=== PATIENT | female | born 1990 | race Two or more races ===

== ENCOUNTER 2016-10-26 16:05 | Outpatient (CLI) | payer OTHER ==
[~2016-10-26] VITALS: Ht 162.6 cm; Wt 68.0 kg
[~2016-10-26 16:05] MED LIST: ACETAMINOPHEN500 MG PO; AUGMENTIN875 MG PO; BACTRIM,SEPT1 TABLET PO; CIPROFLOXACIN500 M1 PO; Cipro PO; Depo-Provera; FIORICET 50-301 EACH PO; IRON325 MG PO; KEFLEX500 MG PO; MACROBID100 MG PO; Motrin PO; NOHOMEMEDS; PREDNISONE20 MG PO; PRENATAL VITAM1 EAC1 PO; PYRIDIUM100 MG PO; TRAMADOL HCL50 MG PO; TYLENOL WITH C1 EACH PO; ULTRAM50 MG PO; UNISOM SLEEP AI25 MG PO; VALIUM5 MG PO
[2016-10-26] MEDS ORDERED: ZOLOFT100 MG PO (17:02)
[2016-10-26 17:03] VITALS: BP 118/70
== END 2016-10-26 17:45 | disposition home or self-care (01) ==
LOC: EME 16:05 → EDSTATUS 16:25 → LDRP-OP 16:28 → 2WEST 16:29
DX: O26.899 Other specified pregnancy related conditions, unspecified trimester (principal); G43.901 Migraine, unspecified, not intractable, with status migrainosus; Z3A.00 Weeks of gestation of pregnancy not specified
CPT/HCPCS: 59025; G0378

== ENCOUNTER 2016-11-09 22:22 | Outpatient (CLI) | payer OTHER ==
[~2016-11-09 22:22] MED LIST changes: +ZOLOFT100 MG PO
[2016-11-09] MEDS ORDERED: IRON325 MG PO (23:03)
[2016-11-09] MEDS ORDERED: FIORICET,ESG1 TABLET PO (23:04)
[2016-11-09 23:07] VITALS: BP 122/72
[2016-11-09 23:42] LABS: EOSINOPHIL COUNT 0.1 K/uL (0-0.3); HEMATOCRIT 29.3 % (36.0-46.0); IMMATURE GRANULOCYTE (%) 1.4 % (0.0-0.7); IMMATURE GRANULOCYTE COUNT 0.2 K/uL; INSTRUMENT ABS NEUTROPHIL CT 10.6 K/uL; LYMPHOCYTE COUNT 0.8 K/uL (1.0-2.8); MCH 28.9 PG (29.0-34.0); MCHC 33.1 G/DL (30.0-36.0); MCV 87.2 FL (83-99); MEAN PLAT.VOLUME 12.5 uM^3 (9.5-12.4); MONOCYTE (%) 2.4 % (3-12); MONOCYTE COUNT 0.3 K/uL (0-0.8); NEUTROPHIL (%) 88.3 % (45-76); NEUTROPHIL COUNT 10.6 K/uL (1.8-6.4); PLATELET COUNT 101 K/uL (156-360); RBC DIS.WIDTH-CV 13.9 % (11.8-14.6); RBC DIS.WIDTH-SD 43.7 % (39-53); RED BLOOD COUNT 3.36 M/uL (3.80-5.20)
[2016-11-10 00:02] LABS: CHLORIDE 108 mEq/L (99-109); POTASSIUM 3.6 mEq/L (3.7-5.4); SODIUM 135 mEq/L (136-147)
[2016-11-10 00:04] LABS: GLUCOSE 95 mg/dL (70-99)
[2016-11-10 00:06] LABS: ANION GAP 10 MEQ/L (2-14); TOTAL BILIRUBIN 0.4 mg/dL (0.0-1.0)
[2016-11-10 00:08] LABS: ALKALINE PHOSPHATASE 326 IU/L (3-129); GFR ESTIMATE (CALCULATED) > 59 mL/min/
[2016-11-10 00:09] LABS: UREA NITROGEN (BUN) 7 mg/dL (9-23)
[2016-11-10 02:35] LABS: ADD MIUA? YES; BILIRUBIN NEGATIVE; BLOOD NEGATIVE; COLOR YELLOW ((YELLOW)); GLUCOSE (STRIP) NEGATIVE; KETONES NEGATIVE; LEUKOCYTES MODERATE; NITRITE POSITIVE; PROTEIN (STRIP) NEGATIVE; SPECIFIC GRAVITY 1.018 (1.000-1.030)
[2016-11-10 03:01] LABS: AMORPHOUS URATES CRYSTALS 1+; BACTERIA 3+ /HPF; CALCIUM OXALATE CRYSTALS RARE /HPF; CASTS NONE SEEN /LPF; CRYSTALS PRESENT; EPITHELIAL CELLS 2+ /HPF; MUCUS 1+ /LPF; RED BLOOD CELLS NONE SEEN /HPF (0-5); UCUL ADDED? YES; WHITE BLOOD CELLS 30-40 /HPF (0-5)
[2016-11-10 03:16] LABS: BENZODIAZEPINES QUANT VALUE 0 NG/ML; BENZODIAZEPINES, URINE SCREEN Negative (200 ng/mL); MARIJUANA QUANT VALUE 0 NG/ML; OPIATES QUANTITATIVE VALUE 0 NG/ML; PHENCYCLIDINE QUANT VALUE 0 NG/ML
[2016-11-11] MEDS ORDERED: MACROBID100 MG PO (19:03)
[2016-11-11] MEDS ORDERED: MAKENA250 MG/11 IM (19:04)
== END 2016-11-10 01:40 | disposition home or self-care (01) ==
LOC: LDRP-OP → 2WEST 22:24 → LDRP-OP 01-20 18:41
PROVIDERS: Obstetrics & Gynecology
DX: O60.03 Preterm labor without delivery, third trimester (principal); O99.283 Endocrine, nutritional and metabolic diseases complicating pregnancy, third trimester; E86.0 Dehydration; O23.43 Unspecified infection of urinary tract in pregnancy, third trimester; B96.20 Unspecified Escherichia coli [E. coli] as the cause of diseases classified elsewhere; Z3A.34 34 weeks gestation of pregnancy; O99.333 Smoking (tobacco) complicating pregnancy, third trimester; O09.33 Supervision of pregnancy with insufficient antenatal care, third trimester; O99.343 Other mental disorders complicating pregnancy, third trimester; F32.9 Major depressive disorder, single episode, unspecified; F41.9 Anxiety disorder, unspecified
CPT/HCPCS: 59025; 80053; 80306 90; 81003; 85025; 87077; 87086; 87186; G0378; J2405; J7120

== ENCOUNTER 2016-11-11 16:46 | Outpatient (CLI) | payer OTHER ==
[~2016-11-11] VITALS: Ht 162.6 cm; Wt 77.1 kg
[~2016-11-11 16:46] MED LIST changes: +FIORICET,ESG1 TABLET PO
[2016-11-11 17:02] VITALS: BP 126/70
[2016-11-11 17:25] LABS: ADD MIUA? YES; BILIRUBIN NEGATIVE; BLOOD SMALL; COLOR YELLOW ((YELLOW)); GLUCOSE (STRIP) NEGATIVE; KETONES 5; LEUKOCYTES LARGE; NITRITE POSITIVE; PROTEIN (STRIP) NEGATIVE; SPECIFIC GRAVITY 1.006 (1.000-1.030)
[2016-11-11 17:28] LABS: HEMATOCRIT 29.6 % (36.0-46.0); MCH 29.3 PG (29.0-34.0); MCHC 33.8 G/DL (30.0-36.0); MCV 86.8 FL (83-99); MEAN PLAT.VOLUME 12.9 uM^3 (9.5-12.4); PLATELET COUNT 106 K/uL (156-360); RBC DIS.WIDTH-CV 14.1 % (11.8-14.6); RBC DIS.WIDTH-SD 43.8 % (39-53); RED BLOOD COUNT 3.41 M/uL (3.80-5.20)
[2016-11-11 17:29] LABS: WHITE BLOOD COUNT 18.9 K/uL (4.1-10.2)
[2016-11-11 17:47] VITALS: BP 118/66
[2016-11-11 18:02] LABS: BACTERIA RARE /HPF; EPITHELIAL CELLS RARE /HPF; MUCUS TRACE /LPF; RED BLOOD CELLS 0-5 /HPF (0-5); UCUL ADDED? YES; WHITE BLOOD CELLS TNTC /HPF (0-5)
[2016-11-11] MEDS ORDERED: MACROBID100 MG PO (19:03)
[2016-11-11] MEDS ORDERED: MAKENA250 MG/11 IM (19:04)
[2016-11-11 19:23] VITALS: BP 116/63
[2016-11-11 19:56] LABS: AMPHETAMINE NEGATIVE (500 ng/mL); BARBITURATES PRESUMPTIVE POSITIVE (200 ng/mL); BENZODIAZEPINES NEGATIVE (150 ng/mL); COCAINE NEGATIVE (150 ng/mL); INTERNAL CONTROLS VALID? YES; METHADONE NEGATIVE (200 ng/mL); METHAMPHETAMINE NEGATIVE (500 ng/mL); OPIATES (MORPHINE) NEGATIVE (100 ng/mL); OXYCODONE NEGATIVE (100 ng/mL); PHENCYCLIDINE NEGATIVE (25 ng/mL); PROPOXYPHENE NEGATIVE (300 ng/mL); THC CANNABINOIDS NEGATIVE (50 ng/mL); TRICYCLIC ANTIDEPRESSANTS NEGATIVE (300 ng/mL)
[2016-11-11 19:57] LABS: ADD MEDTOX COMMENT Y
[2016-11-11 20:39] VITALS: BP 107/58
[2016-11-11 23:02] VITALS: BP 104/70
[2016-11-12 00:45] VITALS: BP 101/65
[2016-11-12 02:32] VITALS: BP 119/72
[2016-11-12 03:43] VITALS: BP 100/60
[2016-11-12 04:18] LABS: ALKALINE PHOSPHATASE 340 IU/L (3-129); ANION GAP 9 MEQ/L (2-14); CHLORIDE 104 MEQ/L (99-109); GFR ESTIMATE (CALCULATED) > 59 mL/min/; GLUCOSE 85 mg/dL (70-99); POTASSIUM 3.5 MEQ/L (3.7-5.4); SAMPLE HEMOLYSIS CHECK 0; SAMPLE ICTERIC CHECK 0; SAMPLE LIPEMIA CHECK 0; SODIUM 133 MEQ/L (136-147); TOTAL BILIRUBIN 0.7 MG/DL (0.0-1.0); UREA NITROGEN (BUN) 5 mg/dL (9-23)
[2016-11-13 14:40] LABS: CHLAMYDIA TRACHOMATIS NEGATIVE; NEISSERIA GONORRHOEAE NEGATIVE
== END 2016-11-12 04:10 | disposition short-term general hospital (02) ==
LOC: LDRP-OP 16:46 → 2WEST 16:47 → LDRP-OP 01-20 01:56
PROVIDERS: Nurse Practitioner; Obstetrics & Gynecology
DX: O23.03 Infections of kidney in pregnancy, third trimester (principal); B96.20 Unspecified Escherichia coli [E. coli] as the cause of diseases classified elsewhere; Z3A.34 34 weeks gestation of pregnancy; O60.03 Preterm labor without delivery, third trimester; O99.113 Other diseases of the blood and blood-forming organs and certain disorders involving the immune mechanism complicating pregnancy, third trimester; O99.323 Drug use complicating pregnancy, third trimester; F11.10 Opioid abuse, uncomplicated; O99.333 Smoking (tobacco) complicating pregnancy, third trimester; F17.200 Nicotine dependence, unspecified, uncomplicated; O99.343 Other mental disorders complicating pregnancy, third trimester; F32.9 Major depressive disorder, single episode, unspecified; O09.33 Supervision of pregnancy with insufficient antenatal care, third trimester
CPT/HCPCS: 76770; 76805; 76818; 80053; 80306 90; 81003; 83605; 84999; 85027; 87086; 87491; 87591; G0378; J0696; J0702; J2540; J7050; J7120

== ENCOUNTER 2016-11-16 00:41 | Inpatient (IN) | payer OTHER ==
[~2016-11-16] VITALS: Ht 162.6 cm; Wt 79.5 kg
[2016-11-16] VITALS (11 sets, daily range): BP systolic 112–136; BP diastolic 60–96
[~2016-11-16 00:41] MED LIST changes: +MAKENA250 MG/11 IM
[2016-11-16 01:55] LABS: ADD MEDTOX COMMENT Y; AMPHETAMINE NEGATIVE (500 ng/mL); BARBITURATES PRESUMPTIVE POSITIVE (200 ng/mL); BENZODIAZEPINES NEGATIVE (150 ng/mL); COCAINE NEGATIVE (150 ng/mL); INTERNAL CONTROLS VALID? YES; METHADONE NEGATIVE (200 ng/mL); METHAMPHETAMINE NEGATIVE (500 ng/mL); OPIATES (MORPHINE) NEGATIVE (100 ng/mL); OXYCODONE PRESUMPTIVE POSITIVE (100 ng/mL); PHENCYCLIDINE NEGATIVE (25 ng/mL); PROPOXYPHENE NEGATIVE (300 ng/mL); THC CANNABINOIDS NEGATIVE (50 ng/mL); TRICYCLIC ANTIDEPRESSANTS NEGATIVE (300 ng/mL)
[2016-11-16 02:05] LABS: BASOPHIL COUNT 0.1 K/uL (0-0.1); EOSINOPHIL (%) 1.3 % (0-5); EOSINOPHIL COUNT 0.3 K/uL (0-0.3); IMMATURE GRANULOCYTE (%) 4.2 % (0.0-0.7); IMMATURE GRANULOCYTE COUNT 0.8 K/uL; INSTRUMENT ABS NEUTROPHIL CT 14.1 K/uL; LYMPHOCYTE COUNT 3.5 K/uL (1.0-2.8); MCH 28.8 PG (29.0-34.0); MCHC 33.9 G/DL (30.0-36.0); MCV 84.9 FL (83-99); MEAN PLAT.VOLUME 12.4 uM^3 (9.5-12.4); MONOCYTE (%) 5.7 % (3-12); MONOCYTE COUNT 1.1 K/uL (0-0.8); NEUTROPHIL (%) 70.8 % (45-76); NEUTROPHIL COUNT 14.1 K/uL (1.8-6.4); PLATELET COUNT 213 K/uL (156-360); RBC DIS.WIDTH-CV 13.5 % (11.8-14.6); RED BLOOD COUNT 3.65 M/uL (3.80-5.20); WHITE BLOOD COUNT 19.9 K/uL (4.1-10.2)
[2016-11-16] MEDS ORDERED: SERTRALINE HCL50 MG PO (03:01)
[2016-11-17 07:24] VITALS: BP 96/54
[2016-11-17 15:30] VITALS: BP 118/73
[2016-11-17 23:35] VITALS: BP 108/62
[2016-11-18 07:45] VITALS: BP 100/58
[2016-11-18] MEDS ORDERED: BREAST PUMP MC (11:30)
== END 2016-11-18 17:11 | disposition home or self-care (01) | DRG 775 ==
LOC: LDRP-OP 00:41 → 2WEST 00:42 → LDRP-OP 11-20 05:10
PROVIDERS: Advanced Practice Midwife
PROC: 10E0XZZ Delivery of Products of Conception, External Approach (ICD-10-PCS; principal; 2016-11-16)
PROC: 10907ZC Drainage of Amniotic Fluid, Therapeutic from Products of Conception, Via Natural or Artificial Opening (ICD-10-PCS; 2016-11-16)
DX: O62.3 Precipitate labor (principal); O60.14X0 Preterm labor third trimester with preterm delivery third trimester, not applicable or unspecified; O99.324 Drug use complicating childbirth; F33.9 Major depressive disorder, recurrent, unspecified; O99.013 Anemia complicating pregnancy, third trimester; Z37.0 Single live birth; O99.344 Other mental disorders complicating childbirth; D50.8 Other iron deficiency anemias; F41.9 Anxiety disorder, unspecified; Z3A.35 35 weeks gestation of pregnancy
CPT/HCPCS: 84999; 85025; 87653; J0290; J1050; J7050; J7120

== ENCOUNTER 2017-04-13 06:23 | Day surgery (SDC) | payer OTHER ==
[~2017-04-13] VITALS: Ht 162.6 cm; Wt 70.7 kg
[~2017-04-13 06:23] MED LIST changes: +ALEVE220 M2 PO; +AMBIEN5 MG PO; +BREAST PUMP MC; +EFFEXOR75 MG PO; +IRON325 M1 PO; +LAMICTAL100 MG PO; +SERTRALINE HCL50 MG PO; +XANAX0.5 MG PO
[2017-04-13 06:41] VITALS: BP 114/66
[2017-04-13] MEDS ORDERED: TYLENOL REGULA325 MG PO (07:29)
[2017-04-13] MEDS ORDERED: ENDOCET 5-3251 EACH PO (07:29)
[2017-04-13 10:35] VITALS: BP 105/62
[2017-04-13 11:23] VITALS: BP 108/58
== END 2017-04-13 11:35 | disposition home or self-care (01) ==
LOC: SDC
PROC: 0UT74ZZ Resection of Bilateral Fallopian Tubes, Percutaneous Endoscopic Approach (ICD-10-PCS; principal; 2017-04-13)
DX: Z30.2 Encounter for sterilization (principal); Z87.891 Personal history of nicotine dependence; K21.9 Gastro-esophageal reflux disease without esophagitis
CPT/HCPCS: 88302; J0330; J1100; J1170; J2250; J2405; J2710; J3010